=== PATIENT | female | born 1935 | race Caucasian/White ===

== ENCOUNTER 2017-04-08 16:47 | Emergency (ER) | payer MEDICARE, BC ==
[2017-04-08 17:27] VITALS: BP 131/72
--- NOTE | 2017-04-08 18:09 | ERNOTE ---
Medical Problem HPI - Narrative Date of Service: 04/08/17 - General Chief Complaint: Screening, Suture/Wound Time Seen by Provider: 04/08/17 18:02 Source: patient, family, RN notes reviewed Exam Limitations: no limitations - Immun/Allergies/Home Medications Immunizations: IMMUNIZATION HX Immunizations Up to Date Yes Allergies/Adverse Reactions: Allergies No Known Allergies Allergy (Verified 04/08/17 17:27) Home Medications: HOME MEDICATIONS Carvedilol [Coreg] 25 mg PO BID 10/11/13 [Last Taken Unknown] Clonazepam [Klonopin] 0.5 mg PO HS 10/11/13 [Last Taken Unknown] Clopidogrel Bisulfate [Plavix] 75 mg PO DAILY 10/11/13 [Last Taken Unknown] Dicyclomine HCl [Bentyl] 20 mg PO QID 10/11/13 [Last Taken Unknown] FLUoxetine HCL [Prozac] 10 mg PO DAILY 10/11/13 [Last Taken Unknown] HYDROcodone/ACETAMINOPHEN [Vicodin 5-300 mg Tablet] 2 each PO Q4H PRN 10/11/13 [ Last Taken Unknown] Multivit-Min/FA/Lycopene/Lut [Centrum Silver Tablet] 1 each PO DAILY 10/11/13 [ Last Taken Unknown] Nitroglycerin [Nitrostat] 0.4 mg SL PRN PRN 10/11/13 [Last Taken Unknown] Simvastatin 40 mg PO DAILY 10/11/13 [Last Taken Unknown] oxyCODONE HCL/ACETAMINOPHEN [Percocet 5 MG/325 MG] 1 tab PO Q4HWA PRN #20 10/12 [Last Taken Unknown] - History of Present History Narrative: Tenisha is an 81-year-old female brought to the emergency department by her family from [facility] in [place] for evaluation of an open wound on her left lower leg. Dr. Watts was contacted by the longterm earlier today and they were directed to bring the patient here for evaluation. The patient had been living at home independently until she struck her lower leg on a bedframe on March 28. She was admitted to the hospital in [place] for 3 days and then discharged to [facility]. Shortly after the injury, she developed a large hematoma just below the wound. The area then came open. The family reports that no specific wound care plan was ordered when the patient was transferred to the longterm. They also report that she was on an antibiotic but do not believe she has been receiving it for the past 3 days. The hematoma has been partially evacuated from the wound during her dressing changes. In the past 2 or 3 days, her lower leg has become much more edematous and red. The wound has been oozing bloody drainage. Date (Duration): 03/28/17 Review of Systems - Review of Systems Constitutional: Absent: fever, chills, fatigue, malaise EYE: Present: no symptoms reported ENT: Present: no symptoms reported Respiratory: Absent: shortness of breath, cough Cardiology: Present: edema. Absent: chest pain Gastrointestinal/Abdominal: Absent: nausea, abdominal pain Genitourinary: Present: no symptoms reported Musculoskeletal: Present: muscle pain. Absent: joint pain Skin: Present: lesions, change in color Neurological: Present: no symptoms reported Endocrine: Present: no symptoms reported Hematologic/Lymphatic: Present: easy bruising, easy bleeding - Patient's Past Medical History Patient History - Medical: Obesity Patient History - Cardiac/Respiratory: CHF, Hypertension Patient History - Cancer: No Hx of Cancer Patient History - Surgical Procedures: Cholecystectomy, Hysterectomy Patient History - Other: None LMP (females 10-50): Menopausal - Social History Living Situations: longterm Psych History: No pertinent hx Smoking Status: Never smoker Alcohol Use: none Drug Use: none - Immunizations Immunizations Up to Date: Yes Physical Exam - Physical Exam General Appearance: Present: wd/wn, alert, no apparent distress, obese Respiratory: Present: no respiratory distress, no accessory muscle use Extremity Exam: Present: pedal edema - bilateral, extremity edema - exteme swelling in left lower leg and foot Neurological Exam: Present: alert, oriented, normal mood/affect, no motor/ sensory deficits Skin Exam: Present: warm/dry, other - Large open wound left lower leg - partial thickness 10 cm at widest, with a full thickness wound in center that is 4cm wide at the widest with necrotic material/hematoma, severe surrounding erythema and edema, entire lower leg and ankle tender to palpation and very warm to touch , original contusion/abrasion wound just superior to large open area ED Progress - Vital Signs Patient's Vital Signs:: I have reviewed the patient's vital signs. Vital Signs: Vital Signs 04/08/17 17:22 Temperature 36.5 C Pulse Rate 68 Respiratory 16 Rate Blood Pressure 131/72 O2 Sat by Pulse 98 Oximetry - Progress/Reassessment Chief Complaint: Screening, Suture/Wound Progress:: Unchanged Plan - Plan Plan: Dr. Watts notified that patient was here. We discussed the severity of the wound over the phone and he recommended transferring to a higher level of care. Labs and xray ordered. Discussed transfer options with patient and family. They elected to go to the [facility] by private vehicle rather than waiting for tests and transfer arrangements to be made here. As she is stable, I agreed to discharge them in order to expedite her care. Departure - Departure Clinical Impression: Open wound of lower extremity with complication Qualifiers: Encounter type: initial encounter Laterality: left Qualified Code(s): S81.802A - Unspecified open wound, left lower leg, initial encounter Disposition: Home Follow Up Needed Condition: Stable Referrals: Delmis Young FNP [Primary Care Provider] -
--- OUTSIDE RECORDS SUMMARY | 2017-04-08 18:09 | XMS REPORT | Summary of Care ---
:1935 Author Organization [facility] Address [address] [place] [id number] Care Team Providers Name Role Phone Margarita Young Primary Care Physician Encounter Date(s): 03/25/16 - 03/25/[address] 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 Diagnosis: Moderate recurrent major depression Discharge Disposition: 01 Discharged to Home or Self Care Attending Physician: MARY Ayala Referring Physician: MARY Ayala Vital Signs Most recent to oldest [Reference Range]: 1 Peripheral Pulse Rate [60-100 bpm] 80 bpm (03/25/16 5:06 PM) SpO2 92 % (03/25/16 5:06 PM) Blood Pressure [90-130/60-90 mmHg] 142/72mmHg *HI* (03/25/16 5:06 PM) Mean Arterial Pressure, Cuff 95 mmHg (03/25/16 5:06 PM) Most recent to oldest [Reference Range]: 1 Height/Length Measured 154 cm (03/25/16 5:06 PM) Weight Dosing 113.40 kg1 (03/25/16 5:08 PM) Weight Measured 113.4 kg (03/25/16 5:06 PM) BSA Measured 2.07 m2 (03/25/16 5:06 PM) Body Mass Index Measured 47.82 kg/m2 (03/25/16 5:06 PM) 1Result Comment: This result was because the dosing weight was either not entered or it is>30 days old. This result is based off: Weight Measured March 25, 2016 17:06:00 CDT by Evelyn Mccoy CMA Problem List Condition Effective Dates Status Health Status Informant Abnormal glucose level(Confirmed) Active CLL - Chronic lymphocytic Active leukemia(Confirmed) CORONARY ATHEROSCLEROSIS OF [place] Active CORONARY ARTERY(Confirmed)1 Hyperglycemia(Confirmed)2 Active Osteoarthritis(Confirmed) Active Leukemia(Confirmed)3 Active Depression(Confirmed)4 Active Hypercholesterolemia(Confirmed) Active Restless leg syndrome(Confirmed)5 Active 37719 [id number] CHRONIC [id number]//8/12 Allergies, Adverse Reactions, Alerts Substance Reaction Severity Status Aleve Active ibuprofen Active Medications aspirin 81 mg oral tablet 1 tab(s), Oral, Daily, # 30 tab(s), 0 Refill(s) Start Date: 02/04/14 Status: Orderedazithromycin 250 mg oral tablet 1 packet(s), Oral, Per Package Label, as directed on package labeling, # 6 tab(s ), 0 Refill(s), Start Date: 10/07/15 9:40:00 CLIMATOLOGIST Special Instructions: as directed on package labeling Start Date: 10/07/15 Stop Date: 10/07/15 Status: Discontinuedazithromycin 250 mg oral tablet 1 packet(s), Oral, Per Package Label, as directed on package labeling, # 6 tab(s ), 0 Refill(s), Start Date: 10/07/15 9:41:00 CLIMATOLOGIST, Pharmacy: [facility] [id number] Special Instructions: as directed on package labeling Start Date: 10/07/15 Stop Date: 10/31/15 Status: CompletedBactrim DS 800 mg-160 mg oral tablet 1 tab(s), Oral, BID, X 3 days, # 6 tab(s), 0 Refill(s), Start Date: 01/13/16 15: 52:00 CDT, Pharmacy: [facility] [id number] Start Date: 01/13/16 Stop Date: 01/16/16 Status: CompletedBactrim DS 800 mg-160 mg oral tablet 1 tab(s), Oral, BID, # 30 tab(s), 0 Refill(s), Start Date: 01/13/16 15:51:00 CDT Start Date: 01/13/16 Stop Date: 01/13/16 Status: Discontinuedcarvedilol 25 mg oral tablet 1 tab(s), Oral, BID, # 180 tab(s), 0 Refill(s) Start Date: 02/04/14 Stop Date: 02/05/14 Status: Discontinuedcarvedilol 25 mg oral tablet 1 tab(s), Oral, BID, # 60 tab(s), 11 Refill(s) Start Date: 02/05/14 Stop Date: 09/19/14 Status: Discontinuedcarvedilol 25 mg oral tablet 1 tab(s), Oral, BID, # 60 tab(s), 5 Refill(s), Start Date: 09/01/15 8:20:56 CLIMATOLOGIST , Pharmacy: [facility] [id number] Start Date: 09/01/15 Stop Date: 09/22/15 Status: Discontinuedcarvedilol 25 mg oral tablet 1 tab(s), Oral, BID, # 180 tab(s), 3 Refill(s), Start Date: 09/22/15 11:26:31 CLIMATOLOGIST, Pharmacy: [facility] [id number] Start Date: 09/22/15 Status: Orderedcarvedilol 25 mg oral tablet 1 tab(s), Oral, BID, # 60 tab(s), 1 Refill(s), Start Date: 02/20/15 12:23:28 CDT , Pharmacy: [facility] [id number] Start Date: 02/20/15 Stop Date: 09/01/15 Status: Completedcarvedilol 25 mg oral tablet 1 tab(s), Oral, BID, # 60 tab(s), 11 Refill(s), Start Date: 09/19/14 12:21:28 CLIMATOLOGIST, [facility] [id number] Start Date: 09/19/14 Stop Date: 02/20/15 Status: CompletedCentrum Silver Ultra Women's oral tablet 1 tab(s), Oral, Daily, 0 Refill(s) Start Date: 02/04/14 Status: OrderedclonazePAM 0.5 mg oral tablet 1 tab(s), Oral, HS, # 30 tab(s), 3 Refill(s) Start Date: 02/05/14 Stop Date: 06/11/14 Status: DiscontinuedclonazePAM 0.5 mg oral tablet 1 tab(s), Oral, HS, # 90 tab(s), 1 Refill(s), Start Date: 04/13/16 17:54:52 CDT , called to pharmacy (Rx) Start Date: 04/13/16 Status: OrderedclonazePAM 0.5 mg oral tablet 1 tab(s), Oral, HS, # 30 tab(s), 2 Refill(s), Start Date: 07/03/15 15:27:44 CDT , called to pharmacy (Rx) Start Date: 07/03/15 Stop Date: 09/22/15 Status: DiscontinuedclonazePAM 0.5 mg oral tablet 1 tab(s), Oral, HS, # 90 tab(s), 3 Refill(s), Start Date: 09/22/15 11:26:34 CLIMATOLOGIST Start Date: 09/22/15 Stop Date: 04/13/16 Status: CompletedclonazePAM 0.5 mg oral tablet 1 tab(s), Oral, HS, X 30 days, # 30 tab(s), 2 Refill(s), Start Date: 10/16/14 8: 41:48 CLIMATOLOGIST, called to pharmacy (Rx) Start Date: 10/16/14 Stop Date: 04/07/15 Status: CompletedclonazePAM 0.5 mg oral tablet 1 tab(s), Oral, HS, # 30 tab(s), 5 Refill(s), Start Date: 09/19/14 12:24:58 CLIMATOLOGIST Start Date: 09/19/14 Stop Date: 10/16/14 Status: DiscontinuedclonazePAM 0.5 mg oral tablet 1 tab(s), Oral, HS, X 30 days, # 30 tab(s), 2 Refill(s), Start Date: 04/07/15 16 :50:28 CDT, called to pharmacy (Rx) Start Date: 04/07/15 Stop Date: 07/03/15 Status: CompletedclonazePAM 0.5 mg oral tablet 1 tab(s), Oral, HS, # 30 tab(s), 3 Refill(s) Start Date: 06/11/14 Stop Date: 09/19/14 Status: DiscontinuedclonazePAM 0.5 mg oral tablet 1 tab(s), Oral, HS, 0 Refill(s) Start Date: 02/04/14 Stop Date: 02/05/14 Status: Discontinueddicyclomine 20 mg oral tablet 1 tab(s), Oral, QID, 0 Refill(s) Start Date: 02/04/14 Stop Date: 02/05/14 Status: DiscontinuedFlorastor 250 mg oral capsule 1 cap(s), Oral, BID, PRN for loose stool, Finish entire package, # 1 boxes, 0 Refill(s), Start Date: 01/13/16 15:52:00 CDT, Pharmacy: [facility] [id number] Special Instructions: Finish entire package Start Date: 01/13/16 Status: OrderedFlorastor 250 mg oral capsule 1 cap(s), Oral, BID, PRN for loose stool, # 10 cap(s), 0 Refill(s), Start Date: 01/13/16 15:52:00 CDT Start Date: 01/13/16 Stop Date: 01/13/16 Status: DiscontinuedFLUoxetine 10 mg oral capsule 1 cap(s), Oral, Daily, # 30 cap(s), 11 Refill(s) Start Date: 02/05/14 Stop Date: 09/19/14 Status: DiscontinuedFLUoxetine 10 mg oral capsule 1 cap(s), Oral, Daily, # 30 cap(s), 1 Refill(s), Start Date: 03/11/15 16:19:44 CDT, Pharmacy: [facility] [id number] Start Date: 03/11/15 Stop Date: 09/22/15 Status: DiscontinuedFLUoxetine 10 mg oral capsule 1 cap(s), Oral, Daily, # 90 cap(s), 11 Refill(s), Start Date: 09/22/15 11:26:50 CLIMATOLOGIST, Pharmacy: [facility] [id number] Start Date: 09/22/15 Status: OrderedFLUoxetine 10 mg oral capsule 1 cap(s), Oral, Daily, # 30 cap(s), 0 Refill(s), called to pharmacy (Rx) Start Date: 02/01/14 Stop Date: 02/05/14 Status: DiscontinuedFLUoxetine 10 mg oral capsule 1 cap(s), Oral, Daily, # 30 cap(s), 5 Refill(s) Start Date: 02/01/14 Stop Date: 02/01/14 Status: DiscontinuedFLUoxetine 10 mg oral capsule 1 cap(s), Oral, Daily, # 30 cap(s), 11 Refill(s), Start Date: 09/19/14 12:21:36 CLIMATOLOGIST, Pharmacy: [facility] [id number] Start Date: 09/19/14 Stop Date: 03/11/15 Status: Completedfurosemide 20 mg oral tablet 1 tab(s), Oral, Daily, PRN edema, # 30 tab(s), 0 Refill(s) Start Date: 04/16/14 Stop Date: 09/19/14 Status: Discontinuedfurosemide 20 mg oral tablet 1 tab(s), Oral, Daily, PRN edema, # 90 tab(s), 3 Refill(s), Start Date: 11:26:59 CLIMATOLOGIST, Pharmacy: [facility] [id number] Start Date: 09/22/15 Stop Date: 03/25/16 Status: Discontinuedfurosemide 20 mg oral tablet 1 tab(s), Oral, Daily, PRN edema, # 30 tab(s), 11 Refill(s), Start Date: 12:21:39 CLIMATOLOGIST, Pharmacy: [facility] [id number] Start Date: 09/19/14 Stop Date: 09/22/15 Status: Discontinuedfurosemide 40 mg oral tablet 2 tab(s), Oral, Daily, # 90 tab(s), 11 Refill(s), Start Date: 03/25/16 17:27:00 CDT, Pharmacy: [facility] [id number] Start Date: 03/25/16 Stop Date: 04/05/16 Status: Discontinuedfurosemide 40 mg oral tablet See Instructions, 1 tab(s) Oral Daily- can take extra tab dly prn increased edema, # 90 tab(s), 11 Refill(s), Start Date: 04/05/16 16:49:07 CDT, other reason (Rx) Special Instructions: 1 tab(s) Oral Daily- can take extra tab dly prn increased edema Start Date: 04/05/16 Status: OrderedHYDROcodone-acetaminophen 10 mg-325 mg oral tablet 1 tab(s), Oral, q8hr, PRN for pain, # 90 tab(s), 0 Refill(s), Start Date: 14:14:48 CLIMATOLOGIST Start Date: 10/02/14 Stop Date: 11/04/14 Status: CompletedHYDROcodone-acetaminophen 10 mg-325 mg oral tablet 1 tab(s), Oral, QID, PRN for pain, X 30 days, # 120 tab(s), 0 Refill(s), Start Date: 12/30/15 15:49:27 CDT Start Date: 12/30/15 Stop Date: 02/06/16 Status: CompletedHYDROcodone-acetaminophen 10 mg-325 mg oral tablet 1 tab(s), Oral, q8hr, PRN for pain, # 90 tab(s), 0 Refill(s), Start Date: 11:32:29 CLIMATOLOGIST Start Date: 11/04/14 Stop Date: 12/05/14 Status: CompletedHYDROcodone-acetaminophen 10 mg-325 mg oral tablet 1 tab(s), Oral, q8hr, PRN for pain, X 30 days, # 90 tab(s), 0 Refill(s), Start Date: 08/04/15 10:30:02 CDT Start Date: 08/04/15 Stop Date: 09/04/15 Status: CompletedHYDROcodone-acetaminophen 10 mg-325 mg oral tablet 1 tab(s), Oral, q8hr, PRN for pain, # 90 tab(s), 0 Refill(s), Start Date: 11:15:23 CLIMATOLOGIST Start Date: 09/04/15 Stop Date: 09/22/15 Status: DiscontinuedHYDROcodone-acetaminophen 10 mg-325 mg oral tablet 1 tab(s), Oral, QID, PRN for pain, X 30 days, # 120 tab(s), 0 Refill(s), Start Date: 09/22/15 11:27:02 CLIMATOLOGIST Start Date: 09/22/15 Stop Date: 11/21/15 Status: CompletedHYDROcodone-acetaminophen 10 mg-325 mg oral tablet 1 tab(s), Oral, q8hr, PRN for pain, X 30 days, # 90 tab(s), 0 Refill(s), Start Date: 04/04/15 9:13:06 CDT Start Date: 04/04/15 Stop Date: 05/02/15 Status: CompletedHYDROcodone-acetaminophen 10 mg-325 mg oral tablet 1 tab(s), Oral, q8hr, PRN for pain, X 30 days, # 90 tab(s), 0 Refill(s), Start Date: 06/04/15 10:55:34 CDT Start Date: 06/04/15 Stop Date: 07/04/15 Status: CompletedHYDROcodone-acetaminophen 10 mg-325 mg oral tablet 1 tab(s), Oral, q8hr, PRN for pain, X 30 days, # 90 tab(s), 0 Refill(s), Start Date: 01/02/15 16:08:08 CDT Start Date: 01/02/15 Stop Date: 02/03/15 Status: CompletedHYDROcodone-acetaminophen 10 mg-325 mg oral tablet 1 tab(s), Oral, QID, PRN for pain, X 30 days, # 120 tab(s), 0 Refill(s), Start Date: 02/06/16 13:14:03 CDT Start Date: 02/06/16 Stop Date: 03/17/16 Status: CompletedHYDROcodone-acetaminophen 10 mg-325 mg oral tablet 1 tab(s), Oral, QID, PRN for pain, # 120 tab(s), 0 Refill(s), Start Date: 14:41:42 CDT Start Date: 03/17/16 Stop Date: 04/16/16 Status: OrderedHYDROcodone-acetaminophen 10 mg-325 mg oral tablet 1 tab(s), Oral, q8hr, PRN for pain, X 30 days, # 90 tab(s), 0 Refill(s), Start Date: 05/02/15 9:17:12 CDT Start Date: 05/02/15 Stop Date: 06/04/15 Status: CompletedHYDROcodone-acetaminophen 10 mg-325 mg oral tablet 1 tab(s), Oral, q8hr, PRN for pain, # 90 tab(s), 0 Refill(s), Start Date: 15:48:40 CLIMATOLOGIST Start Date: 09/02/14 Stop Date: 10/02/14 Status: CompletedHYDROcodone-acetaminophen 10 mg-325 mg oral tablet 1 tab(s), Oral, QID, PRN for pain, X 30 days, # 120 tab(s), 0 Refill(s), Start Date: 11/21/15 9:02:30 CLIMATOLOGIST Start Date: 11/21/15 Stop Date: 12/30/15 Status: CompletedHYDROcodone-acetaminophen 10 mg-325 mg oral tablet 1 tab(s), Oral, q8hr, PRN for pain, X 30 days, # 90 tab(s), 0 Refill(s), Start Date: 03/05/15 10:54:04 CDT Start Date: 03/05/15 Stop Date: 04/04/15 Status: CompletedHYDROcodone-acetaminophen 10 mg-325 mg oral tablet 1 tab(s), Oral, q8hr, PRN for pain, X 30 days, # 90 tab(s), 0 Refill(s), Start Date: 07/04/15 10:10:50 CDT Start Date: 07/04/15 Stop Date: 08/04/15 Status: CompletedHYDROcodone-acetaminophen 10 mg-325 mg oral tablet 1 tab(s), Oral, q8hr, PRN for pain, # 90 tab(s), 1 Refill(s) Start Date: 06/11/14 Stop Date: 07/26/14 Status: CompletedHYDROcodone-acetaminophen 10 mg-325 mg oral tablet 1 tab(s), Oral, q8hr, PRN for pain, # 90 tab(s), 1 Refill(s), Start Date: 15:04:01 CDT Start Date: 07/26/14 Stop Date: 09/02/14 Status: CompletedHYDROcodone-acetaminophen 10 mg-325 mg oral tablet 1 tab(s), Oral, q8hr, PRN for pain, # 90 tab(s), 0 Refill(s), Start Date: 8:45:35 CLIMATOLOGIST Start Date: 12/05/14 Stop Date: 01/02/15 Status: CompletedHYDROcodone-acetaminophen 10 mg-325 mg oral tablet 1 tab(s), Oral, q4hr, PRN for pain, 0 Refill(s) Start Date: 02/04/14 Stop Date: 02/05/14 Status: DiscontinuedHYDROcodone-acetaminophen 10 mg-325 mg oral tablet 1 tab(s), Oral, q8hr, PRN for pain, # 90 tab(s), 3 Refill(s) Start Date: 02/05/14 Stop Date: 06/11/14 Status: DiscontinuedHYDROcodone-acetaminophen 10 mg-325 mg oral tablet 1 tab(s), Oral, q8hr, PRN for pain, X 30 days, # 90 tab(s), 0 Refill(s), Start Date: 02/03/15 11:11:29 CDT, other reason (Rx) Start Date: 02/03/15 Stop Date: 03/05/15 Status: Completednitroglycerin 0.4 mg sublingual tablet 1 tab(s), SL, q5min, PRN for chest pain, # 100 tab(s), 11 Refill(s), Start Date : 09/22/15 11:27:00 CLIMATOLOGIST, Pharmacy: [facility] [id number] Start Date: 09/22/15 Status: Orderednitroglycerin 0.4 mg sublingual tablet 1 tab(s), SL, q5min, PRN for chest pain, # 100 tab(s), 0 Refill(s) Start Date: 02/04/14 Stop Date: 09/22/15 Status: DiscontinuedPlavix 75 mg oral tablet 1 tab(s), Oral, Daily, # 30 tab(s), 5 Refill(s), Start Date: 08/29/14 11:09:48 CLIMATOLOGIST, Pharmacy: [facility] [id number] Start Date: 08/29/14 Stop Date: 09/19/14 Status: DiscontinuedPlavix 75 mg oral tablet 1 tab(s), Oral, Daily, # 30 tab(s), 5 Refill(s), Start Date: 02/05/14 11:49:00 CDT Start Date: 02/05/14 Stop Date: 08/29/14 Status: CompletedPlavix 75 mg oral tablet 1 tab(s), Oral, Daily, # 90 tab(s), 11 Refill(s), Start Date: 09/22/15 11:26:41 CLIMATOLOGIST, Pharmacy: [facility] [id number] Start Date: 09/22/15 Status: OrderedPlavix 75 mg oral tablet 1 tab(s), Oral, Daily, # 30 tab(s), 11 Refill(s), Start Date: 09/19/14 12:21:32 CLIMATOLOGIST, Pharmacy: [facility] [id number] Start Date: 09/19/14 Stop Date: 09/22/15 Status: DiscontinuedPlavix 75 mg oral tablet 1 tab(s), Oral, Daily, # 30 tab(s), 0 Refill(s) Start Date: 02/04/14 Stop Date: 02/05/14 Status: Discontinuedpotassium chloride 10 mEq oral tablet, extended release 10 mEq, Oral, Daily, # 90 tab(s), 3 Refill(s), Start Date: 09/22/15 11:27:00 CLIMATOLOGIST , [facility] [id number] Start Date: 09/22/15 Stop Date: 11/03/15 Status: Discontinuedpotassium chloride extended release 10 mEq, Oral, 0 Refill(s), Start Date: 03/05/15 10:51:00 CDT Start Date: 03/05/15 Stop Date: 09/22/15 Status: Discontinuedpravastatin 40 mg oral tablet 1 tab(s), Oral, Daily, # 90 tab(s), 3 Refill(s), Start Date: 09/22/15 11:28:00 CLIMATOLOGIST, [facility] [id number] Start Date: 09/22/15 Status: Orderedsimvastatin 40 mg oral tablet 1 tab(s), Oral, HS, # 30 tab(s), 11 Refill(s), Start Date: 09/19/14 12:21:42 CLIMATOLOGIST , [facility] [id number] Start Date: 09/19/14 Stop Date: 09/22/15 Status: Discontinuedsimvastatin 40 mg oral tablet 1 tab(s), Oral, HS, # 30 tab(s), 11 Refill(s) Start Date: 02/05/14 Stop Date: 09/19/14 Status: Discontinuedsimvastatin 80 mg oral tablet 1 tab(s), Oral, HS, # 30 tab(s), 0 Refill(s) Start Date: 02/04/14 Stop Date: 02/05/14 Status: DiscontinuedtraMADol 50 mg oral tablet 1 tab(s), Oral, QID, PRN for pain, # 120 tab(s), 5 Refill(s), Start Date: 17:56:47 CDT, called to pharmacy (Rx) Start Date: 04/13/16 Status: OrderedtraMADol 50 mg oral tablet 1 tab(s), Oral, QID, PRN for pain, # 120 tab(s), 5 Refill(s), Start Date: 11:32:00 CLIMATOLOGIST Start Date: 09/22/15 Stop Date: 04/13/16 Status: Completed Results No data available for this section Immunizations Vaccine Date Refusal Reason influenza virus vaccine, inactivated 09/22/15 influenza virus vaccine, inactivated 09/16/14 influenza virus vaccine, inactivated 09/16/13 pneumococcal 13-valent conjugate vaccine 09/22/15 pneumococcal 23-polyvalent vaccine 09/30/11 zoster vaccine live 10/02/09 Procedures Procedure Date Related Diagnosis Body Site Breast biopsy sample1 Cholecystectomy2 Colonoscopy, flexible, proximal to splenic flexure; diagnostic, with or without collection of specimen(s) by brushing or washing, with or without colon decompression (separate procedure)3 Hysterectomy Shoulder Surgery4 Stent placement5 [id number]- LAPAROSCOPIC, BERYL [id number] Social History No data available for this section Assessment and Plan No data available for this section
--- OUTSIDE RECORDS SUMMARY | 2017-04-08 18:09 | XMS REPORT | Summary of Care ---
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 Hyperglycemia(Confirmed)2 Active Osteoarthritis(Confirmed) Active Leukemia(Confirmed)3 Active Depression(Confirmed)4 Active Hypercholesterolemia(Confirmed) Active Restless leg syndrome(Confirmed)5 Active 11498 [id number]/[id number] CHRONIC [id number]//8/12 Allergies, Adverse Reactions, Alerts Substance Reaction Severity Status Aleve Active ibuprofen Active Medications aspirin 81 mg oral tablet 1 tab(s), Oral, Daily, # 30 tab(s), 0 Refill(s) Start Date: 02/04/14 Status: Orderedazithromycin 250 mg oral tablet 1 packet(s), Oral, Per Package Label, as directed on package labeling, # 6 tab(s ), 0 Refill(s), Start Date: 10/07/15 9:40:00 [employer] Special Instructions: as directed on package labeling Start Date: 10/07/15 Stop Date: 10/07/15 Status: Discontinuedazithromycin 250 mg oral tablet 1 packet(s), Oral, Per Package Label, as directed on package labeling, # 6 tab(s ), 0 Refill(s), Start Date: 10/07/15 9:41:00 [employer], Pharmacy: [facility] [id number] Special Instructions: as directed on package labeling Start Date: 10/07/15 Stop Date: 10/31/15 Status: CompletedBactrim DS 800 mg-160 mg oral tablet 1 tab(s), Oral, BID, X 3 days, # 6 tab(s), 0 Refill(s), Start Date: 01/13/16 15: 52:00 CDT, Pharmacy: [facility] [id number] Start Date: 01/13/16 Stop Date: 01/16/16 Status: [...] tab(s), 5 Refill(s), Start Date: 09/01/15 8:20:56 [employer] , Pharmacy: [facility] [id number] Start Date: 09/01/15 Stop Date: 09/22/15 Status: Discontinuedcarvedilol 25 mg oral tablet 1 tab(s), Oral, BID, # 180 tab(s), 3 Refill(s), Start Date: 09/22/15 11:26:31 [employer], Pharmacy: [facility] [id number] Start Date: 09/22/15 Status: Orderedcarvedilol 25 mg oral tablet 1 tab(s), Oral, BID, # 60 tab(s), 1 Refill(s), Start Date: 02/20/15 12:23:28 CDT , Pharmacy: [facility] [id number] Start Date: 02/20/15 Stop Date: 09/01/15 Status: Completedcarvedilol 25 mg oral tablet 1 tab(s), Oral, BID, # 60 tab(s), 11 Refill(s), Start Date: 09/19/14 12:21:28 [employer], Pharmacy: [facility] [id number] Start Date: 09/19/14 Stop Date: 02/20/15 Status: [...] tab(s), 3 Refill(s), Start Date: 09/22/15 11:26:34 [employer] Start Date: 09/22/15 Stop Date: 04/13/16 Status: CompletedclonazePAM 0.5 mg oral tablet 1 tab(s), Oral, HS, X 30 days, # 30 tab(s), 2 Refill(s), Start Date: 10/16/14 8: 41:48 [employer], called to pharmacy (Rx) Start Date: 10/16/14 Stop Date: 04/07/15 Status: CompletedclonazePAM 0.5 mg oral tablet 1 tab(s), Oral, HS, # 30 tab(s), 5 Refill(s), Start Date: 09/19/14 12:24:58 [employer] Start Date: 09/19/14 Stop Date: 10/16/14 Status: [...] Refill(s), Start Date: 01/13/16 15:52:00 CDT, Pharmacy: [facility] [id number] Special Instructions: Finish entire package Start Date: [...] Refill(s), Start Date: 03/11/15 16:19:44 CDT, Pharmacy: [facility] [id number] Start Date: 03/11/15 Stop Date: 09/22/15 Status: DiscontinuedFLUoxetine 10 mg oral capsule 1 cap(s), Oral, Daily, # 90 cap(s), 11 Refill(s), Start Date: 09/22/15 11:26:50 [employer], Pharmacy: [facility] [id number] Start Date: 09/22/15 Status: OrderedFLUoxetine 10 mg [...] cap(s), 11 Refill(s), Start Date: 09/19/14 12:21:36 [employer], Pharmacy: [facility] [id number] Start Date: 09/19/14 Stop Date: 03/11/15 Status: Completedfurosemide 20 mg oral tablet 1 tab(s), Oral, Daily, PRN edema, # 30 tab(s), 0 Refill(s) Start Date: 04/16/14 Stop Date: 09/19/14 Status: Discontinuedfurosemide 20 mg oral tablet 1 tab(s), Oral, Daily, PRN edema, # 90 tab(s), 3 Refill(s), Start Date: 11:26:59 [employer], Pharmacy: [facility] [id number] Start Date: 09/22/15 Stop Date: 03/25/16 Status: Discontinuedfurosemide 20 mg oral tablet 1 tab(s), Oral, Daily, PRN edema, # 30 tab(s), 11 Refill(s), Start Date: 12:21:39 [employer], Pharmacy: [facility] [id number] Start Date: 09/19/14 Stop Date: 09/22/15 Status: Discontinuedfurosemide 40 mg oral tablet 2 tab(s), Oral, Daily, # 90 tab(s), 11 Refill(s), Start Date: 03/25/16 17:27:00 CDT, Pharmacy: [facility] [id number] Start Date: 03/25/16 Stop Date: 04/05/16 Status: [...] 90 tab(s), 0 Refill(s), Start Date: 14:14:48 [employer] Start Date: 10/02/14 Stop Date: 11/04/14 Status: CompletedHYDROcodone-acetaminophen 10 mg-325 mg oral tablet 1 tab(s), Oral, QID, PRN for pain, X 30 days, # 120 tab(s), 0 Refill(s), Start Date: 12/30/15 15:49:27 CDT Start Date: 12/30/15 Stop Date: 02/06/16 Status: CompletedHYDROcodone-acetaminophen 10 mg-325 mg oral tablet 1 tab(s), Oral, q8hr, PRN for pain, # 90 tab(s), 0 Refill(s), Start Date: 11:32:29 [employer] Start Date: 11/04/14 Stop Date: 12/05/14 Status: CompletedHYDROcodone-acetaminophen 10 mg-325 mg oral tablet 1 tab(s), Oral, q8hr, PRN for pain, X 30 days, # 90 tab(s), 0 Refill(s), Start Date: 08/04/15 10:30:02 CDT Start Date: 08/04/15 Stop Date: 09/04/15 Status: CompletedHYDROcodone-acetaminophen 10 mg-325 mg oral tablet 1 tab(s), Oral, q8hr, PRN for pain, # 90 tab(s), 0 Refill(s), Start Date: 11:15:23 [employer] Start Date: 09/04/15 Stop Date: 09/22/15 Status: DiscontinuedHYDROcodone-acetaminophen 10 mg-325 mg oral tablet 1 tab(s), Oral, QID, PRN for pain, X 30 days, # 120 tab(s), 0 Refill(s), Start Date: 09/22/15 11:27:02 [employer] Start Date: 09/22/15 Stop Date: 11/21/15 Status: [...] 90 tab(s), 0 Refill(s), Start Date: 15:48:40 [employer] Start Date: 09/02/14 Stop Date: 10/02/14 Status: CompletedHYDROcodone-acetaminophen 10 mg-325 mg oral tablet 1 tab(s), Oral, QID, PRN for pain, X 30 days, # 120 tab(s), 0 Refill(s), Start Date: 11/21/15 9:02:30 [employer] Start Date: 11/21/15 Stop Date: 12/30/15 Status: [...] 90 tab(s), 0 Refill(s), Start Date: 8:45:35 [employer] Start Date: 12/05/14 Stop Date: 01/02/15 Status: [...] 11 Refill(s), Start Date : 09/22/15 11:27:00 [employer], Pharmacy: [facility] [id number] Start Date: 09/22/15 Status: Orderednitroglycerin 0.4 mg sublingual tablet 1 tab(s), SL, q5min, PRN for chest pain, # 100 tab(s), 0 Refill(s) Start Date: 02/04/14 Stop Date: 09/22/15 Status: DiscontinuedPlavix 75 mg oral tablet 1 tab(s), Oral, Daily, # 30 tab(s), 5 Refill(s), Start Date: 08/29/14 11:09:48 [employer], Pharmacy: [facility] [id number] Start Date: 08/29/14 Stop Date: 09/19/14 Status: DiscontinuedPlavix 75 mg oral tablet 1 tab(s), Oral, Daily, # 30 tab(s), 5 Refill(s), Start Date: 02/05/14 11:49:00 CDT Start Date: 02/05/14 Stop Date: 08/29/14 Status: CompletedPlavix 75 mg oral tablet 1 tab(s), Oral, Daily, # 90 tab(s), 11 Refill(s), Start Date: 09/22/15 11:26:41 [employer], Pharmacy: [facility] [id number] Start Date: 09/22/15 Status: OrderedPlavix 75 mg oral tablet 1 tab(s), Oral, Daily, # 30 tab(s), 11 Refill(s), Start Date: 09/19/14 12:21:32 [employer], Pharmacy: [facility] [id number] Start Date: 09/19/14 Stop Date: 09/22/15 Status: DiscontinuedPlavix 75 mg oral tablet 1 tab(s), Oral, Daily, # 30 tab(s), 0 Refill(s) Start Date: 02/04/14 Stop Date: 02/05/14 Status: Discontinuedpotassium chloride 10 mEq oral tablet, extended release 10 mEq, Oral, Daily, # 90 tab(s), 3 Refill(s), Start Date: 09/22/15 11:27:00 [employer] , Pharmacy: [facility] [id number] Start Date: 09/22/15 Stop Date: 11/03/15 Status: Discontinuedpotassium chloride extended release 10 mEq, Oral, 0 Refill(s), Start Date: 03/05/15 10:51:00 CDT Start Date: 03/05/15 Stop Date: 09/22/15 Status: Discontinuedpravastatin 40 mg oral tablet 1 tab(s), Oral, Daily, # 90 tab(s), 3 Refill(s), Start Date: 09/22/15 11:28:00 [employer], Pharmacy: [facility] [id number] Start Date: 09/22/15 Status: Orderedsimvastatin 40 mg oral tablet 1 tab(s), Oral, HS, # 30 tab(s), 11 Refill(s), Start Date: 09/19/14 12:21:42 [employer] , Pharmacy: [facility] [id number] Start Date: 09/19/14 Stop Date: 09/22/15 Status: [...] 120 tab(s), 5 Refill(s), Start Date: 11:32:00 [employer] Start Date: 09/22/15 Stop Date: 04/13/16 Status: [...] (separate procedure)3 Hysterectomy Shoulder Surgery4 Stent placement5 [id number]/30- LAPAROSCOPIC, BERYL [id number] Social History No data available for this section Assessment and Plan No data available for this section
--- OUTSIDE RECORDS SUMMARY | 2017-04-08 18:09 | XMS REPORT | Continuity of Care Document ---
:1935 Author Organization [facility] Address Unavailable [address] [address] Care Team Providers Name Role Phone Austin Christine Primary Care Provider [phone] Source Comments This disclosure is being made pursuant to the [place] program and maynot contain all information available regarding this patient.[facility] Active Allergies and Adverse Reactions Allergen Noted Date Severity Reactions Comments Ibuprofen 08/01/2014 High Hives Current Medications Be aware that medications may not be up to date as of this document. Alwaysverify current medications with the patient. Prescription Sig. Disp. Refills Start Date End Date Status clopidogrel (PLAVIX) Take 75 mg by 11/28/2011 Active 75 MG tablet mouth daily. carvedilol (COREG) 25 Take 25 mg by 12/04/2012 Active MG tablet mouth 2 (two) times daily. FLUoxetine (PROZAC) Take 10 mg by Active 10 MG capsule mouth. 1 capsule(s) by mouth daily before noon ranitidine (ZANTAC) Take 150 mg by Active 150 MG tablet mouth nightly. aspirin 81 MG tablet Take 81 mg by Active mouth daily. clonazePAM (KLONOPIN) Take 0.5 mg by Active 0.5 MG tablet mouth nightly. HYDROcodone-acetamino Take 10-650 mg by Active phen (NORCO) 10-325 mouth every 6 MG per tablet (six) hours as needed. Multiple Take by mouth Active Vitamins-Minerals daily. (MULTIVITAMIN PO) nitroGLYCERIN Place 0.4 mg under Active (NITROSTAT) 0.4 MG SL the tongue. 1 tablet tablet(s) sublingual as needed for chest pain (may repeat every 5 minutes but seek medical help if pain persists after 3 tablets) naftifine (NAFTIN) 1 Apply to affected 30 g 0 08/01/2014 Active % cream area once or twice daily for 1-3 weeks until resolved. potassium chloride Take 1 capsule by 30 capsule 3 01/30/2015 Active (MICRO-K) 10 MEQ CR mouth daily. Take capsule only with lasix furosemide (LASIX) 40 TK 2 TS PO D 11 03/25/2016 Active MG tablet pravastatin Take 40 mg by Active (PRAVACHOL) 40 MG mouth daily. tablet Active Problems Problem Noted Date Morbid obesity (HCC) 08/06/2014 Hypertension 08/06/2014 Hyperlipidemia 08/06/2014 Coronary artery disease 08/06/2014 Tinea corporis 08/06/2014 Social History Tobacco Use Types Packs/Day Years Used Date Never Smoker Last Filed Vital Signs Vital Sign Reading Time Taken Blood Pressure 126/70 05/24/2016 2:42 PM CDT Pulse 63 05/24/2016 2:42 PM CDT Temperature 36.1 C (97 F) 08/09/2011 1:14 PM CDT Respiratory Rate - - Height 1.524 m (5') 03/26/2014 1:51 PM CDT Weight 116.574 kg (257 lb) 05/24/2016 2:42 PM CDT Body Mass Index 50.19 05/24/2016 2:42 PM CDT Oxygen Saturation 96% 05/24/2016 2:42 PM CDT Plan of Care Patient Goal Type Goal Blood Pressure Blood Pressure below 140/90 Date Type Specialty Providers Description 05/24/2017 Appointment Cardiology Tami Arellano, [employer] [address] [place] [id number] [phone] (Fax) Health Maintenance Due Date Last Done Comments Tetanus/Pertussis (1 - Tdap) 1954 Well Adult Visit 1986 Zoster Vaccine 60+ 1996 Bone Density 2001 Pneumococcal Low/Medium Risk 65+ (1 of 2 - PCV13) 2001 Influenza Immunization (#1) 2016 Results from Last 3 Months Not on file
--- OUTSIDE RECORDS SUMMARY | 2017-04-08 18:10 | XMS REPORT | Summary of Care ---
:[address] [facility] Address [address] [place] [id number] Care Team Providers Name Role Phone Margarita Young Primary Care Physician Encounter Date(s): 12/01/16 - 12/01/[address] [id number] Discharge Disposition: 01 Discharged to Home or Self Care Attending Physician: MARY Ayala Referring Physician: MARY Ayala Vital Signs Most recent to oldest [Reference Range]: 1 Temperature Tympanic [36.6-38.1 DegC] 36.4 DegC *LOW* (12/01/16 3:24 PM) Temperature C to F 97.5 (12/01/16 3:24 PM) Peripheral Pulse Rate [60-100 bpm] 64 bpm (12/01/16 3:24 PM) Respiratory Rate [12-20 br/min] 20 br/min (12/01/16 3:24 PM) Blood Pressure [90-130/60-90 mmHg] 142/72mmHg *HI* (12/01/16 3:24 PM) Mean Arterial Pressure, Cuff 95 mmHg (12/01/16 3:24 PM) Most recent to oldest [Reference Range]: 1 Height/Length Measured 154 cm (12/01/16 3:24 PM) Weight Dosing 112.20 kg1 (12/01/16 3:32 PM) Weight Measured 112.2 kg (12/01/16 3:24 PM) BSA Measured 2.06 m2 (12/01/16 3:24 PM) Body Mass Index Measured 47.31 kg/m2 (12/01/16 3:24 PM) 1Result Comment: This result was because the dosing weight was either not entered or it is>30 days old. 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 Hyperglycemia(Confirmed)2 Active Osteoarthritis(Confirmed) Active Leukemia(Confirmed)3 Active Depression(Confirmed)4 Active Hypercholesterolemia(Confirmed) Active Restless leg syndrome(Confirmed)5 Active 10581 [id number]/123CLL CHRONIC [id number]//8/12 Allergies, Adverse Reactions, Alerts Substance Reaction Severity Status Aleve Active ibuprofen Active Medications aspirin 81 mg oral tablet 1 tab(s), Oral, Daily, # 30 tab(s), 0 Refill(s) Start Date: 02/04/14 Stop Date: 09/08/16 Status: Discontinuedazithromycin 250 mg oral tablet 1 packet(s), Oral, Per Package Label, as directed on package labeling, # 6 tab(s ), 0 Refill(s), Start Date: 10/07/15 9:40:00 [employer] Special Instructions: as directed on package labeling Start Date: 10/07/15 Stop Date: 10/07/15 Status: Discontinuedazithromycin 250 mg oral tablet 1 packet(s), Oral, Per Package Label, as directed on package labeling, # 6 tab(s ), 0 Refill(s), Start Date: 10/07/15 9:41:00 [employer], Pharmacy: [facility] [id number] Special Instructions: as directed on package labeling Start Date: 10/07/15 Stop Date: 10/31/15 Status: CompletedBactrim DS 800 mg-160 mg oral tablet 1 tab(s), Oral, BID, X 3 days, # 6 tab(s), 0 Refill(s), Start Date: 01/13/16 15: 52:00 CDT, Pharmacy: [facility] [id number] Start Date: 01/13/16 Stop Date: 01/16/16 Status: [...] # 180 tab(s), 3 Refill(s), Start Date: 11/05/16 13:59:40 [employer], Pharmacy: [facility] [id number] Start Date: 11/05/16 Status: Orderedcarvedilol 25 mg oral tablet 1 tab(s), Oral, BID, # 60 tab(s), 5 Refill(s), Start Date: 09/01/15 8:20:56 [employer] , Pharmacy: [facility] [id number] Start Date: 09/01/15 Stop Date: 09/22/15 Status: Discontinuedcarvedilol 25 mg oral tablet 1 tab(s), Oral, BID, # 180 tab(s), 3 Refill(s), Start Date: 09/22/15 11:26:31 [employer], Pharmacy: [facility] [id number] Start Date: 09/22/15 Stop Date: 11/05/16 Status: Completedcarvedilol 25 mg oral tablet 1 tab(s), Oral, BID, # 60 tab(s), 1 Refill(s), Start Date: 02/20/15 12:23:28 CDT , Pharmacy: [facility] [id number] Start Date: 02/20/15 Stop Date: 09/01/15 Status: Completedcarvedilol 25 mg oral tablet 1 tab(s), Oral, BID, # 60 tab(s), 11 Refill(s), Start Date: 09/19/14 12:21:28 [employer], Pharmacy: [facility] [id number] Start Date: 09/19/14 Stop Date: 02/20/15 Status: CompletedCentrum Silver Ultra Women's oral tablet 1 tab(s), Oral, Daily, 0 Refill(s) Start Date: 02/04/14 Status: OrderedclonazePAM 0.5 mg oral tablet 1 tab(s), Oral, HS, # 30 tab(s), 3 Refill(s) Start Date: 02/05/14 Stop Date: 06/11/14 Status: DiscontinuedclonazePAM 0.5 mg oral tablet 1 tab(s), Oral, HS, # 90 tab(s), 1 Refill(s), Start Date: 10/06/16 10:01:55 [employer] , called to pharmacy (Rx) Start Date: 10/06/16 Status: OrderedclonazePAM 0.5 mg oral tablet 1 tab(s), Oral, HS, # 90 tab(s), 1 Refill(s), Start Date: 04/13/16 17:54:52 CDT , called to pharmacy (Rx) Start Date: 04/13/16 Stop Date: 10/06/16 Status: CompletedclonazePAM 0.5 mg oral tablet 1 tab(s), Oral, HS, # 30 tab(s), 2 Refill(s), Start Date: 07/03/15 15:27:44 CDT , called to pharmacy (Rx) Start Date: 07/03/15 Stop Date: 09/22/15 Status: DiscontinuedclonazePAM 0.5 mg oral tablet 1 tab(s), Oral, HS, # 90 tab(s), 3 Refill(s), Start Date: 09/22/15 11:26:34 [employer] Start Date: 09/22/15 Stop Date: 04/13/16 Status: CompletedclonazePAM 0.5 mg oral tablet 1 tab(s), Oral, HS, X 30 days, # 30 tab(s), 2 Refill(s), Start Date: 10/16/14 8: 41:48 [employer], called to pharmacy (Rx) Start Date: 10/16/14 Stop Date: 04/07/15 Status: CompletedclonazePAM 0.5 mg oral tablet 1 tab(s), Oral, HS, # 30 tab(s), 5 Refill(s), Start Date: 09/19/14 12:24:58 [employer] Start Date: 09/19/14 Stop Date: 10/16/14 Status: [...] Refill(s), Start Date: 01/13/16 15:52:00 CDT, Pharmacy: [facility] [id number] Special Instructions: Finish entire package Start Date: [...] Refill(s), Start Date: 03/11/15 16:19:44 CDT, Pharmacy: [facility] [id number] Start Date: 03/11/15 Stop Date: 09/22/15 Status: DiscontinuedFLUoxetine 10 mg oral capsule 1 cap(s), Oral, Daily, # 90 cap(s), 11 Refill(s), Start Date: 09/22/15 11:26:50 [employer], Pharmacy: [facility] [id number] Start Date: 09/22/15 Status: OrderedFLUoxetine 10 mg [...] cap(s), 11 Refill(s), Start Date: 09/19/14 12:21:36 [employer], Pharmacy: [facility] [id number] Start Date: 09/19/14 Stop Date: 03/11/15 Status: Completedfurosemide 20 mg oral tablet 1 tab(s), Oral, Daily, PRN edema, # 30 tab(s), 0 Refill(s) Start Date: 04/16/14 Stop Date: 09/19/14 Status: Discontinuedfurosemide 20 mg oral tablet 1 tab(s), Oral, Daily, PRN edema, # 90 tab(s), 3 Refill(s), Start Date: 11:26:59 [employer], Pharmacy: [facility] [id number] Start Date: 09/22/15 Stop Date: 03/25/16 Status: Discontinuedfurosemide 20 mg oral tablet 1 tab(s), Oral, Daily, PRN edema, # 30 tab(s), 11 Refill(s), Start Date: 12:21:39 [employer], Pharmacy: [facility] [id number] Start Date: 09/19/14 Stop Date: 09/22/15 Status: Discontinuedfurosemide 40 mg oral tablet 2 tab(s), Oral, Daily, # 90 tab(s), 11 Refill(s), Start Date: 03/25/16 17:27:00 CDT, Pharmacy: [facility] [id number] Start Date: 03/25/16 Stop Date: 04/05/16 Status: [...] 90 tab(s), 0 Refill(s), Start Date: 14:14:48 [employer] Start Date: 10/02/14 Stop Date: 11/04/14 Status: CompletedHYDROcodone-acetaminophen 10 mg-325 mg oral tablet 1 tab(s), Oral, QID, PRN for pain, X 30 days, # 120 tab(s), 0 Refill(s), Start Date: 12/30/15 15:49:27 CDT Start Date: 12/30/15 Stop Date: 02/06/16 Status: CompletedHYDROcodone-acetaminophen 10 mg-325 mg oral tablet 1 tab(s), Oral, q8hr, PRN for pain, # 90 tab(s), 0 Refill(s), Start Date: 11:32:29 [employer] Start Date: 11/04/14 Stop Date: 12/05/14 Status: CompletedHYDROcodone-acetaminophen 10 mg-325 mg oral tablet 1 tab(s), Oral, q8hr, PRN for pain, X 30 days, # 90 tab(s), 0 Refill(s), Start Date: 08/04/15 10:30:02 CDT Start Date: 08/04/15 Stop Date: 09/04/15 Status: CompletedHYDROcodone-acetaminophen 10 mg-325 mg oral tablet 1 tab(s), Oral, q8hr, PRN for pain, # 90 tab(s), 0 Refill(s), Start Date: 11:15:23 [employer] Start Date: 09/04/15 Stop Date: 09/22/15 Status: DiscontinuedHYDROcodone-acetaminophen 10 mg-325 mg oral tablet 1 tab(s), Oral, QID, PRN for pain, X 30 days, # 120 tab(s), 0 Refill(s), Start Date: 09/22/15 11:27:02 [employer] Start Date: 09/22/15 Stop Date: 11/21/15 Status: [...] # 120 tab(s), 0 Refill(s), Start Date: 03/17/16 14:41:42 CDT Start Date: 03/17/16 Stop Date: 04/27/16 Status: CompletedHYDROcodone-acetaminophen 10 mg-325 mg oral tablet 1 tab(s), Oral, q8hr, PRN for pain, X 30 days, # 90 tab(s), 0 Refill(s), Start Date: 05/02/15 9:17:12 CDT Start Date: 05/02/15 Stop Date: 06/04/15 Status: CompletedHYDROcodone-acetaminophen 10 mg-325 mg oral tablet 1 tab(s), Oral, QID, PRN for pain, X 30 days, # 120 tab(s), 0 Refill(s), Start Date: 04/27/16 16:28:06 CDT Start Date: 04/27/16 Stop Date: 06/07/16 Status: CompletedHYDROcodone-acetaminophen 10 mg-325 mg oral tablet 1 tab(s), Oral, q8hr, PRN for pain, # 90 tab(s), 0 Refill(s), Start Date: 15:48:40 [employer] Start Date: 09/02/14 Stop Date: 10/02/14 Status: CompletedHYDROcodone-acetaminophen 10 mg-325 mg oral tablet 1 tab(s), Oral, QID, PRN for pain, X 30 days, # 120 tab(s), 0 Refill(s), Start Date: 11/21/15 9:02:30 [employer] Start Date: 11/21/15 Stop Date: 12/30/15 Status: [...] # 120 tab(s), 0 Refill(s), Start Date: 06/07/16 12:39:37 CDT Start Date: 06/07/16 Stop Date: 07/19/16 Status: CompletedHYDROcodone-acetaminophen 10 mg-325 mg oral tablet 1 tab(s), Oral, q8hr, PRN for pain, # 90 tab(s), 1 Refill(s), Start Date: 15:04:01 CDT Start Date: 07/26/14 Stop Date: 09/02/14 Status: CompletedHYDROcodone-acetaminophen 10 mg-325 mg oral tablet 1 tab(s), Oral, q8hr, PRN for pain, # 90 tab(s), 0 Refill(s), Start Date: 8:45:35 [employer] Start Date: 12/05/14 Stop Date: 01/02/15 Status: [...] Start Date: 02/03/15 Stop Date: 03/05/15 Status: CompletedHYDROcodone-acetaminophen 10mg-325mg oral tablet 1 tab(s), Oral, QID, PRN for pain, X 30 days, # 120 tab(s), 0 Refill(s), Start Date: 10/05/16 8:44:34 [employer] Start Date: 10/05/16 Stop Date: 11/05/16 Status: CompletedHYDROcodone-acetaminophen 10mg-325mg oral tablet 1 tab(s), Oral, QID, PRN for pain, do not fill until 08/18/16, X 30 days, # 120 tab(s), 0 Refill(s), Start Date: 09/08/16 11:02:35 [employer] Special Instructions: do not fill until 08/18/16 Start Date: 09/08/16 Stop Date: 10/05/16 Status: Completedhydrocodone-acetaminophen 10mg-325mg oral tablet 1 tab(s), Oral, QID, PRN for pain, # 120 tab(s), 0 Refill(s), Start Date: 8:44:30 [employer] Start Date: 11/05/16 Stop Date: 12/05/16 Status: OrderedHYDROcodone-acetaminophen 10mg-325mg oral tablet 1 tab(s), Oral, QID, PRN for pain, X 30 days, # 120 tab(s), 0 Refill(s), Start Date: 07/19/16 11:07:23 CDT Start Date: 07/19/16 Stop Date: 08/18/16 Status: CompletedHYDROcodone-acetaminophen 10mg-325mg oral tablet 1 tab(s), Oral, QID, PRN for pain, do not fill until 08/18/16, # 120 tab(s), 0 Refill(s), Start Date: 08/18/16 16:53:00 CDT Special Instructions: do not fill until 08/18/16 Start Date: 08/18/16 Stop Date: 09/08/16 Status: Discontinuednitroglycerin 0.4 mg sublingual tablet 1 tab(s), SL, q5min, PRN for chest pain, # 100 tab(s), 11 Refill(s), Start Date : 09/22/15 11:27:00 [employer], Pharmacy: [facility] [id number] Start Date: 09/22/15 Status: Orderednitroglycerin 0.4 mg sublingual tablet 1 tab(s), SL, q5min, PRN for chest pain, # 100 tab(s), 0 Refill(s) Start Date: 02/04/14 Stop Date: 09/22/15 Status: Discontinuednystatin 100,000 units/g topical cream 1 chela, Topical, QID, # 30 gm, 11 Refill(s), Start Date: 09/08/16 11:08:00 [employer], Pharmacy: [facility] [id number] Start Date: 09/08/16 Stop Date: 09/11/17 Status: OrderedPlavix 75 mg oral tablet 1 tab(s), Oral, Daily, # 30 tab(s), 5 Refill(s), Start Date: 08/29/14 11:09:48 [employer], Pharmacy: [facility] [id number] Start Date: 08/29/14 Stop Date: 09/19/14 Status: DiscontinuedPlavix 75 mg oral tablet 1 tab(s), Oral, Daily, # 30 tab(s), 5 Refill(s), Start Date: 02/05/14 11:49:00 CDT Start Date: 02/05/14 Stop Date: 08/29/14 Status: CompletedPlavix 75 mg oral tablet 1 tab(s), Oral, Daily, # 90 tab(s), 11 Refill(s), Start Date: 09/22/15 11:26:41 [employer], Pharmacy: [facility] [id number] Start Date: 09/22/15 Status: OrderedPlavix 75 mg oral tablet 1 tab(s), Oral, Daily, # 30 tab(s), 11 Refill(s), Start Date: 09/19/14 12:21:32 [employer], Pharmacy: [facility] [id number] Start Date: 09/19/14 Stop Date: 09/22/15 Status: DiscontinuedPlavix 75 mg oral tablet 1 tab(s), Oral, Daily, # 30 tab(s), 0 Refill(s) Start Date: 02/04/14 Stop Date: 02/05/14 Status: Discontinuedpotassium chloride 10 mEq oral tablet, extended release 10 mEq, Oral, Daily, # 90 tab(s), 3 Refill(s), Start Date: 09/22/15 11:27:00 [employer] , Pharmacy: [facility] [id number] Start Date: 09/22/15 Stop Date: 11/03/15 Status: Discontinuedpotassium chloride extended release 10 mEq, Oral, 0 Refill(s), Start Date: 03/05/15 10:51:00 CDT Start Date: 03/05/15 Stop Date: 09/22/15 Status: Discontinuedpravastatin 40 mg oral tablet 1 tab(s), Oral, Daily, # 90 tab(s), 3 Refill(s), Start Date: 10/06/16 10:01:27 [employer], Pharmacy: [facility] [id number] Start Date: 10/06/16 Status: Orderedpravastatin 40 mg oral tablet 1 tab(s), Oral, Daily, # 90 tab(s), 3 Refill(s), Start Date: 09/22/15 11:28:00 [employer], Pharmacy: [facility] [id number] Start Date: 09/22/15 Stop Date: 10/06/16 Status: Completedsimvastatin 40 mg oral tablet 1 tab(s), Oral, HS, # 30 tab(s), 11 Refill(s), Start Date: 09/19/14 12:21:42 [employer] , Pharmacy: [facility] [id number] Start Date: 09/19/14 Stop Date: 09/22/15 Status: Discontinuedsimvastatin 40 mg oral tablet 1 tab(s), Oral, HS, # 30 tab(s), 11 Refill(s) Start Date: 02/05/14 Stop Date: 09/19/14 Status: Discontinuedsimvastatin 80 mg oral tablet 1 tab(s), Oral, HS, # 30 tab(s), 0 Refill(s) Start Date: 02/04/14 Stop Date: 02/05/14 Status: Discontinuedspironolactone 25 mg oral tablet 1 tab(s), Oral, Daily, take in am, # 90 tab(s), 3 Refill(s), Start Date: 16:48:00 [employer], Pharmacy: [facility] [id number] Special Instructions: take in am Start Date: 12/01/16 Status: OrderedtraMADol 50 mg oral tablet 1 tab(s), Oral, QID, PRN for pain, # 120 tab(s), 5 Refill(s), Start Date: 17:56:47 CDT, called to pharmacy (Rx) Start Date: 04/13/16 Status: OrderedtraMADol 50 mg oral tablet 1 tab(s), Oral, QID, PRN for pain, # 120 tab(s), 5 Refill(s), Start Date: 11:32:00 [employer] Start Date: 09/22/15 Stop Date: 04/13/16 Status: Completedtriamcinolone 0.1% topical cream 1 chela, Topical, TID, # 60 gm, 11 Refill(s), Start Date: 09/08/16 11:07:00 [employer], Pharmacy: [facility] [id number] Start Date: 09/08/16 Stop Date: 09/09/17 Status: Ordered Results No data available for this section Immunizations Vaccine Date Refusal Reason influenza virus vaccine, inactivated 09/08/16 influenza virus vaccine, inactivated 09/22/15 influenza virus [...] (separate procedure)3 Hysterectomy Shoulder Surgery4 Stent placement5 [id number]- LAPAROSCOPIC, BERYL [id number] Social History No data available for this section Assessment and Plan No data available for this section
== END 2017-04-08 18:45 | disposition home or self-care (01) ==
LOC: ER 16:47
DX: S81.802S Unspecified open wound, left lower leg, sequela (principal); I10 Essential (primary) hypertension; I50.9 Heart failure, unspecified; X58.XXXA Exposure to other specified factors, initial encounter; Y93.9 Activity, unspecified; Y92.003 Bedroom of unspecified non-institutional (private) residence as the place of occurrence of the external cause